=== PATIENT | female | born 1990 | race African-American/Black ===

== ENCOUNTER 2019-03-30 19:30 | Emergency (ER) | payer OTHER, MEDICAID ==
[2019-03-30 19:58] VITALS: BP 119/64
[2019-03-30] MEDS ORDERED: ACETAMINOPHEN 325 MG TABLET PO ONE (20:14)
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
[2019-03-30] MEDS ORDERED: HYDROCODONE/ACETAMINOPHEN 5-325 MG (6 TAB/ER DISP) PO PRN (23:37)
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
== END 2019-03-31 00:15 | disposition home or self-care (01) ==
LOC: ER 19:30
PROC: 2W3CX1Z Immobilization of Right Lower Arm using Splint (ICD-10-PCS; principal; 2019-03-30)
DX: S62.201A Unspecified fracture of first metacarpal bone, right hand, initial encounter for closed fracture (principal); M79.644 Pain in right finger(s); V87.7XXA Person injured in collision between other specified motor vehicles (traffic), initial encounter
CPT/HCPCS: 99283